=== PATIENT | female | born 1960 | race Caucasian/White ===

== ENCOUNTER 2016-11-09 21:19 | Emergency (ER) | payer OTHER ==
[~2016-11-09] VITALS: Ht 162.6 cm; Wt 54.5 kg
[2016-11-09 21:27] VITALS: BP 126/80; PULSE 86; RESP 18; O2SAT 97
--- NOTE | 2016-11-09 22:31 | ED.REPORT ---
HPI-Extremity Problem Upper Date of Service Nov 09, 2016 ED Provider: Jorge Watkins DO Pt is a 56 y.o. female who presents to the ED c/o right elbow pain, described as "achy" onset today. She reports that she woke up from a nap and stretched, she felt "bone to bone" and now has constant aching pain which worsens with ROM. She claims that she had right elbow surgery on 09/14/16. Nursing Notes Stated Complaint: PAIN IN RIGHT ELBOW Chief Complaint: Extremity Trauma Nursing Notes Reviewed: Yes Allergies: Coded Allergies: codeine (Verified Allergy, Intermediate, Hives, 05/22/09) Uncoded Allergies: UNKNOWN ABX (Allergy, Unknown, 11/09/16) PT UNABLE TO RECALL NAME OF ABX General Time Seen by MD: 22:30 Chief Complaint Elbow injury right Hx Obtained From: Patient Arrived By: Walk-in Onset Occurred: 1 - 4 hours ago Symptom Duration: Constant Caused by: Accidental Location: : Elbow right Quality: Aching, Painful Severity: Current: Severe Exacerbated by: Range of motion Recent Healthcare: Previous surgery Past Medical History Past Medical History None reported Past Surgical History Right elbow Reports: Appendectomy, Tonsillectomy Reports: Tubal ligation Smoking History Current Every Day Smoker Social History Alcohol Use: "Social" Ambulatory Status Independent Review of Systems Constitutional: Denies: Chills, Fever Musculoskeletal: Reports: Joint pain (Right elbow) Complete sys rev & neg: except as marked. GI: Denies: Nausea, Vomiting Physical Exam Initial Vital Signs Vital Signs (First) Date Time Temp Pulse Resp B/P Pulse Ox O2 Delivery O2 Flow Rate FiO2 11/09/16 21:27 36.1 86 18 126/80 97 Room Air Initial VS: Reviewed Respiratory: Breath sounds normal, No respiratory distress Cardiovascular: Regular rate & rhythm, Intact distal pulses Abdomen / GI: No distention Lower Extremities: Vascular intact, Neuro intact Skin: Warm, Dry, No cyanosis Neurologic: Alert, Oriented, Nonfocal Psychiatric: Mood/affect normal, Behavior normal, Normal thought content General/Constitutional: Awake, Alert, No acute distress, Well appearing, Well developed, Well hydrated, Well nourished, Not toxic appearing Upper Extremity / MS: Atraumatic, No deformity, Neurologic intact, Vascular intact Right Elbow: Positive: Tenderness present... (with ROM), Negative: Deformity present, Swelling present..., Warmth present Post operative changes to right elbow Interpretation & Diagnostics X-Ray Interpretation Xray Interpretation: IMPRESSION: No fracture present X-Ray Ordered: Shoulder right Interpretation / Wet Read by: Wet read ED physician Interpretation: Normal exam, No fracture/dislocation Re-Eval/Medical Decision Med Decision/Clinical Course Patient seemed to hyperextend her right elbow she now has elbow pain with range of motion. No evidence of vascular compromise. No evidence of subluxation. X- rays were reassuring. She will be placed in a sling and short course of Percocet provided for pain. Recommend close outpatient follow-up. Source of Hx: Old records Re-Evaluation/Progress : Time of Eval: 23:41 Patient Status: Pain improved Re-Evaluation/Progress Note: Pt rechecked. Her pain is improved and she would like to be discharged. Counseled Regarding: Diagnosis, Lab results, Need for follow-up, When/why to return to ED Discharge & Departure Shift Change Sign-Out Response to Therapy: Improved Impression: Primary Impression: Sprain of elbow, right Encounter type: initial encounter Qualified Code: S53.401A - Unspecified sprain of right elbow, initial encounter Disposition: Home Patient Instructions: Elbow Sprain (ED), Splint Care (ED) Additional Instructions: I did not appreciate a fracture on your x-ray. Wear the sling until you are seen by your surgeon this week. Take 1-2 Percocet every 6 hours as needed for severe pain. Rest your arm. Do not drive tonight or while taking the Percocet. Do not consume acetaminophen or alcohol while taking Percocet. Return if any problems or any worsening symptoms. Referrals: Baldo Loyd MD (PCP) Purnima Attestation Portions of this note were transcribed by Cheri Estevez. I, Dr. Watkins personally performed the history, physical exam and medical decision-making; I reviewed and confirmed the accuracy of the information in the transcribed note. Signed by : Purnima Mccarty, 11/09/16 and 2342 copies to: Baldo Loyd MD, Todd P DO Nov 09, 2016 22:30 CHERI ESTEVEZ Nov 09, 2016 22:49
[2016-11-09] MEDS ORDERED: _oxyCODONE/APAP 5-325 mg Tablet PO PRN (22:50)
[2016-11-09] MEDS ORDERED: oxyCODONE-Acetamin 5-325 mg Tablet PO ONE (22:50)
--- NOTE | 2016-11-10 08:12 | DRSVH ---
PROCEDURE: X-RAY RIGHT ELBOW COMPLETE, MINIMUM THREE VIEWS ([id number]) INDICATIONS: hyperextending injury, felt a pop TECHNIQUE: 3 views of the elbow were acquired. COMPARISON: None. FINDINGS: Bones: No fractures or dislocations. No suspicious bony lesions. Soft tissues: No elbow joint effusion. No suspicious soft tissue calcifications. IMPRESSION: No bony abnormality is seen in these 2 views of the right elbow. No joint effusion is see n. If pain persists consider oral occult fracture and repeat images in 14 days. Dictated by: Antonio Diaz M.D. on 11/10/2016 at 8:10 Approved by: Antonio Diaz M.D. on 11/10/2016 at 8:11
== END 2016-11-09 23:43 | disposition home or self-care (01) ==
LOC: SED 21:19
DX: S53.401A Unspecified sprain of right elbow, initial encounter (principal); X50.9XXA Other and unspecified overexertion or strenuous movements or postures, initial encounter; Y93.89 Activity, other specified; Y92.9 Unspecified place or not applicable; Y99.8 Other external cause status; F17.200 Nicotine dependence, unspecified, uncomplicated; Z88.5 Allergy status to narcotic agent